=== PATIENT | female | born 1985 | race Hispanic/Latino ===

== ENCOUNTER 2016-10-28 16:10 | Emergency (ER) | payer SELFPAY ==
[~2016-10-28] VITALS: Ht 147.3 cm; Wt 61.4 kg
[~2016-10-28 16:10] MED LIST: NO HOME MEDS
[2016-10-28] MEDS ORDERED: AMOXICILLIN500 MG PO (17:43)
[2016-10-28 17:45] VITALS: BP 118/75
== END 2016-10-28 17:55 | disposition home or self-care (01) | DRG 153 ==
LOC: ED 16:10
DX: J03.90 Acute tonsillitis, unspecified (principal)